=== PATIENT | female | born 1960 | race Caucasian/White ===

== ENCOUNTER 2016-11-05 19:27 | Emergency (ER) | payer OTHER ==
[~2016-11-05] VITALS: Ht 162.6 cm; Wt 70.3 kg
[~2016-11-05 19:27] MED LIST: FLUT1DIS28 INH
[2016-11-05] MEDS ORDERED: ALBU18HF2 IH (19:39)
[2016-11-05] MEDS ORDERED: ALBUTEROL SULFATE 2.5 MG/3 ML NEBU NEB ONE ×2 (19:45→20:15)
[2016-11-05] MEDS ORDERED: ALBUTEROL SULFATE 2.5 MG/3 ML NEBU ONE ×2 (20:03→20:28)
[2016-11-05] MEDS ORDERED: predniSONE 50 MG TABLET PO ONE (20:15)
[2016-11-05] MEDS ORDERED: predniSONE 50 MG TABLET ONE (20:24)
--- NOTE | 2016-11-05 21:48 | NUR ---
Patient does not wish to proceed with medical care recommended by Dr. Colmenares. Patient given information related to possible complications, up to and including , which could occur as a result of leaving the hospital at this time. Patient verbalizes understanding of risks involved due to leaving against medical advice. Patient has signed AMA form.
--- NOTE | 2016-11-10 21:17 | NUR ---
Correction. 11/05/16. V/S charted are post resp neb tx, NOT during neb tx at 2117 11/05/16.
== END 2016-11-05 21:49 | disposition left against medical advice (07) ==
LOC: ER 19:27
DX: J45.901 Unspecified asthma with (acute) exacerbation (principal); E03.9 Hypothyroidism, unspecified; Z88.0 Allergy status to penicillin; Z90.710 Acquired absence of both cervix and uterus
CPT/HCPCS: 94640 ×2; 99284; A4663; J7512

== ENCOUNTER 2016-11-23 14:59 | Emergency (ER) | payer OTHER ==
[~2016-11-23] VITALS: Ht 162.6 cm; Wt 70.3 kg
[~2016-11-23 14:59] MED LIST changes: +ALBU18HF2 IH
[2016-11-23] MEDS ORDERED: IPRATROPIUM BROMIDE 0.5 MG/2.5 ML NEBU NEB ONE ×2 (15:15→15:45)
[2016-11-23] MEDS ORDERED: predniSONE 10 MG TABLET PO ONE (15:15)
[2016-11-23] MEDS ORDERED: ALBUTEROL SULFATE 2.5 MG/3 ML NEBU NEB ONE ×2 (15:15→15:45)
--- NOTE | 2016-11-23 15:15 | NUR ---
BREATHING TREATMENT GIVEN BY RT.
[2016-11-23] MEDS ORDERED: predniSONE 10 MG TABLET ONE (15:21)
[2016-11-23] MEDS ORDERED: predniSONE 50 MG TABLET ONE (15:21)
[2016-11-23] MEDS ORDERED: ALBUTEROL SULFATE 2.5 MG/3 ML NEBU ONE ×2 (15:23→16:14)
[2016-11-23] MEDS ORDERED: IPRATROPIUM BROMIDE 0.5 MG/2.5 ML NEBU ONE ×2 (15:23→16:14)
--- NOTE | 2016-11-23 16:11 | NUR ---
2ND BREATHING TX RENDERED BY RT PER MD ORDER.
[2016-11-23 17:01] VITALS: BP 103/69
--- NOTE | 2016-11-23 17:04 | NUR ---
Patient discharged to home in stable conditon. Written and verbal after care instructions given. Patient verbalizes understanding of instructions.PT WALKS IN SRTEADY GAIT, SAYS FELS BETTER.
== END 2016-11-23 17:04 | disposition home or self-care (01) ==
LOC: ER 15:04
DX: J45.901 Unspecified asthma with (acute) exacerbation (principal); F10.20 Alcohol dependence, uncomplicated; E03.9 Hypothyroidism, unspecified; Z88.0 Allergy status to penicillin
CPT/HCPCS: 71010; A4663; J3590; J7512

== ENCOUNTER 2017-05-29 19:15 | Emergency (ER) | payer OTHER ==
[~2017-05-29] VITALS: Ht 162.6 cm; Wt 70.3 kg
--- NOTE | 2017-05-29 19:24 | NUR ---
DR. WASHBURN AT BEDSIDE FOR MSE.
--- NOTE | 2017-05-29 19:38 | NUR ---
RT AT BEDSIDE FOR HHN TREATMENT.
--- NOTE | 2017-05-29 20:15 | NUR ---
Patient discharged to home in stable conditon. Written and verbal after care instructions given. Patient verbalizes understanding of instructions. PATIENT LEFT WITH STABLE GAIT.
[2017-05-29 20:16] VITALS: BP 131/88
== END 2017-05-29 20:17 | disposition home or self-care (01) ==
LOC: ER 19:15
DX: J45.901 Unspecified asthma with (acute) exacerbation (principal); J20.9 Acute bronchitis, unspecified; Z88.0 Allergy status to penicillin
CPT/HCPCS: 71010; A4663; J3590; J7512

== ENCOUNTER 2017-07-23 18:43 | Emergency (ER) | payer OTHER ==
[~2017-07-23] VITALS: Ht 162.6 cm; Wt 70.3 kg
[2017-07-23] MEDS ORDERED: ALBUTEROL SULFATE 2.5 MG/3 ML NEBU NEB ONE (19:15)
[2017-07-23] MEDS ORDERED: predniSONE 20 MG TABLET PO ONE (19:15)
[2017-07-23] MEDS ORDERED: IPRATROPIUM BROMIDE 0.5 MG/2.5 ML NEBU NEB ONE (19:15)
[2017-07-23] MEDS ORDERED: predniSONE 50 MG TABLET ONE (19:30)
[2017-07-23] MEDS ORDERED: predniSONE 10 MG TABLET ONE (19:30)
[2017-07-23] MEDS ORDERED: IPRATROPIUM BROMIDE 0.5 MG/2.5 ML NEBU ONE (19:31)
[2017-07-23] MEDS ORDERED: ALBUTEROL SULFATE 2.5 MG/ 0.5 ML NEBU ONE (19:31)
--- NOTE | 2017-07-23 19:47 | NUR ---
Patient discharged to home in stable conditon. Written and verbal after care instructions given. Patient verbalizes understanding of instructions. Walked out of ER with no distress noted
[2017-07-23 19:49] VITALS: BP 130/77
== END 2017-07-23 19:49 | disposition home or self-care (01) ==
LOC: ER 18:43
DX: J45.901 Unspecified asthma with (acute) exacerbation (principal); E03.9 Hypothyroidism, unspecified; Z88.0 Allergy status to penicillin; Z90.49 Acquired absence of other specified parts of digestive tract
CPT/HCPCS: 94664; A4663; J3590; J7512

== ENCOUNTER 2018-05-27 19:33 | Emergency (ER) | payer OTHER ==
[~2018-05-27] VITALS: Ht 162.6 cm; Wt 68.0 kg
--- NOTE | 2018-05-27 20:09 | NUR ---
PT A/OX4, RESPONSIVE TO VERBAL AND TACTILE STIMULI. PT C/O GENERALIZED WEAKNESS AND INTERCOSTAL PAIN. PER PT, SHE HAD AN ASTHMA ATTACK ABOUT AN HOUR AGO THAT LASTED ABOUT 10 MIN AND WAS RELIEVED BY THE USE OF HER MDI. UPON ASSESSMENT, PT PRESENTS W/ RONCHI IN ALL LUNG SALAMANCA. VSS, SPO2 WNL. NO FACIAL DROOP, NO ARM DRIFT, NO UNILATERAL WEAKNESS. PT IN BED, BED IN LOW AND LOCKED POSITION WITH BILATERAL SIDERAILS UP.
--- NOTE | 2018-05-27 20:57 | NUR ---
JAQUELIN COLLINS AT BEDSIDE.
[2018-05-27] MEDS ORDERED: ALBUTEROL SULFATE 2.5 MG/3 ML NEBU NEB ONE (21:15)
[2018-05-27] MEDS ORDERED: IPRATROPIUM BROMIDE 0.5 MG/2.5 ML NEBU NEB ONE (21:15)
[2018-05-27] MEDS ORDERED: methylPREDNISolone SOD SUCC 125 MG/2 ML VIAL IV ONE (21:15)
[2018-05-27] MEDS ORDERED: IPRATROPIUM BROMIDE 0.5 MG/2.5 ML NEBU ONE (21:26)
[2018-05-27] MEDS ORDERED: ALBUTEROL SULFATE 2.5 MG/ 0.5 ML NEBU ONE (21:26)
[2018-05-27 21:36] LABS: BASOPHILS # (AUTO) 0.1 K/uL (0.0-8.0); BASOPHILS % (AUTO) 1.2 % (0.0-2.0); EOSINOPHILS # (AUTO) 0.6 K/uL (0.0-0.7); EOSINOPHILS % (AUTO) 7.9 % (0.0-7.0); HEMATOCRIT 42.9 % (31.2-41.9); HEMOGLOBIN 14.8 g/dL (10.9-14.3); LYMPHOCYTES # (AUTO) 2.6 K/uL (20.0-40.0); LYMPHOCYTES % (AUTO) 36.2 % (20.5-51.5); MEAN CORPUSCULAR HEMOGLOBIN 32.1 uug (24.7-32.8); MEAN CORPUSCULAR HGB CONC 34 g/dL (32.3-35.6); MEAN CORPUSCULAR VOLUME 93.2 fL (75.5-95.3); MONOCYTES # (AUTO) 0.6 K/uL (2.0-10.0); MONOCYTES % (AUTO) 8.4 % (0.0-11.0); NEUTROPHILS # (AUTO) 3.3 K/uL (1.8-8.9); NEUTROPHILS % (AUTO) 46.3 % (38.5-71.5); PLATELET COUNT (AUTO) 199 K/uL (179-408); WHITE BLOOD COUNT (AUTO) 7.1 K/uL (3.8-11.8)
--- NOTE | 2018-05-27 21:36 | NUR ---
XRAY AT BEDSIDE.
[2018-05-27 21:45] LABS: CREATININE 0.7 mg/dL (0.6-1.3); POTASSIUM 4.1 mmol/L (3.5-5.1)
[2018-05-27 21:52] LABS: BILIRUBIN,DIRECT 0.1 mg/dL (0.0-0.2); BILIRUBIN,TOTAL 0.2 mg/dL (0.2-1.0); TOTAL PROTEIN, SERUM 7.7 g/dL (6.4-8.2)
--- NOTE | 2018-05-27 22:49 | NUR ---
JAQUELIN COLLINS AT BEDSIDE FOR PT UPDATE.
--- NOTE | 2018-05-27 23:03 | NUR ---
Patient discharged to home in stable conditon. Written and verbal after care instructions given. Patient verbalizes understanding of instructions. PT D/C HOME W/ PRESCRIPTION. ALL BELONGINGS W/ PT. PT SELF-AMBULATED WITHOUT DIFFICULTY. 20 G L AC IV ACCESS REMOVED PRIOR TO D/C.
[2018-05-27 23:05] VITALS: BP 136/82
== END 2018-05-27 23:05 | disposition home or self-care (01) ==
LOC: ER 19:35
DX: R07.89 Other chest pain (principal); J45.909 Unspecified asthma, uncomplicated; E03.9 Hypothyroidism, unspecified; Z90.710 Acquired absence of both cervix and uterus; Z90.49 Acquired absence of other specified parts of digestive tract; Z88.0 Allergy status to penicillin
CPT/HCPCS: 36415; 71045; 80048; 80076; 84484; 85025; 93005; 94640; 96374; 99285; A4663; J3590; 70030-TC

== ENCOUNTER 2018-06-27 18:04 | Emergency (ER) | payer OTHER ==
[~2018-06-27] VITALS: Ht 162.6 cm; Wt 65.8 kg
--- NOTE | 2018-06-27 18:53 | NUR ---
Patient discharged to home in stable conditon. Written and verbal after care instructions given. Patient verbalizes understanding of instructions.pt walks in steady gait. pt breathing normally, no sign of distress.
== END 2018-06-27 18:55 | disposition home or self-care (01) ==
LOC: ER 18:06
DX: J45.909 Unspecified asthma, uncomplicated (principal); E03.9 Hypothyroidism, unspecified; Z90.710 Acquired absence of both cervix and uterus; Z90.49 Acquired absence of other specified parts of digestive tract; Z88.0 Allergy status to penicillin
CPT/HCPCS: A4663

== ENCOUNTER 2018-08-05 06:07 | Emergency (ER) | payer OTHER ==
[~2018-08-05] VITALS: Ht 167.6 cm; Wt 65.8 kg
[~2018-08-05 06:07] MED LIST changes: -ALBU18HF2 IH
--- NOTE | 2018-08-05 06:43 | NUR ---
DR. AVENDANO AT BEDSIDE FOR MSE.
[2018-08-05] MEDS ORDERED: IPRATROPIUM BROMIDE 0.5 MG/2.5 ML NEBU NEB ONE (07:00)
[2018-08-05] MEDS ORDERED: ALBUTEROL SULFATE 2.5 MG/3 ML NEBU NEB ONE (07:00)
[2018-08-05] MEDS ORDERED: IV NORMAL SALINE 500 ML BAG IV ONE (07:00)
[2018-08-05 07:08] LABS: BASOPHILS % (AUTO) 0.5 % (0.0-2.0); EOSINOPHILS # (AUTO) 0.2 K/uL (0.0-0.7); EOSINOPHILS % (AUTO) 2.1 % (0.0-7.0); HEMATOCRIT 40.3 % (31.2-41.9); HEMOGLOBIN 14.1 g/dL (10.9-14.3); LYMPHOCYTES # (AUTO) 0.7 K/uL (20.0-40.0); LYMPHOCYTES % (AUTO) 7.7 % (20.5-51.5); MEAN CORPUSCULAR HEMOGLOBIN 31.6 uug (24.7-32.8); MEAN CORPUSCULAR HGB CONC 35 g/dL (32.3-35.6); MONOCYTES # (AUTO) 0.4 K/uL (2.0-10.0); MONOCYTES % (AUTO) 4.7 % (0.0-11.0); NEUTROPHILS # (AUTO) 7.4 K/uL (1.8-8.9); PLATELET COUNT (AUTO) 188 K/uL (179-408); RED BLOOD CELL COUNT(AUTO) 4.48 MIL/uL (3.63-4.92); WHITE BLOOD COUNT (AUTO) 8.7 K/uL (3.8-11.8)
--- NOTE | 2018-08-05 07:08 | NUR ---
REPORT GIVEN TO FLOYD PAN.
--- NOTE | 2018-08-05 07:15 | NUR ---
RSV swab done and sent to LAB.
[2018-08-05 07:18] LABS: CREATININE 0.7 mg/dL (0.6-1.3); POTASSIUM 3.6 mmol/L (3.5-5.1)
--- NOTE | 2018-08-05 07:18 | NUR ---
Pt states feeling better after breathing tx.
[2018-08-05] MEDS ORDERED: LEVOFLOXACIN 750 MG/D5W 150 ML PIGGYBACK IV ONE (07:30)
[2018-08-05 07:31] LABS: BILIRUBIN,DIRECT 0.1 mg/dL (0.0-0.2); BILIRUBIN,TOTAL 0.4 mg/dL (0.2-1.0)
[2018-08-05] MEDS ORDERED: LEVOFLOXACIN 750MG/D5W 150 ML IV ONE (07:35)
--- NOTE | 2018-08-05 08:43 | NUR ---
Patient is resting comfortably in bed with eyes closed, NAD noted.
[2018-08-05 08:54] VITALS: BP 127/70
--- NOTE | 2018-08-05 08:57 | NUR ---
IV removed. Catheter intact and site benign. Pressure and 4x4 gauze applied to site. No bleeding noted.
--- NOTE | 2018-08-05 08:57 | NUR ---
Patient discharged to home in stable conditon. Written and verbal after care instructions given. Patient verbalizes understanding of instructions.
== END 2018-08-05 08:57 | disposition home or self-care (01) ==
LOC: ER 06:27
DX: J06.9 Acute upper respiratory infection, unspecified (principal); H66.91 Otitis media, unspecified, right ear; J45.909 Unspecified asthma, uncomplicated; E03.9 Hypothyroidism, unspecified; Z88.0 Allergy status to penicillin; Z79.51 Long term (current) use of inhaled steroids; Z90.710 Acquired absence of both cervix and uterus; Z90.49 Acquired absence of other specified parts of digestive tract
CPT/HCPCS: 36415; 71045; 80048; 80076; 83880; 84484; 85025; 87040 ×2; 87077 ×2; 87186; 87400; 87420; 93005; 94640; 96365; 99284; J1956; 70030-TC; A4663; J3590; J7030

== ENCOUNTER 2018-08-08 13:46 | Emergency (ER) | payer OTHER ==
[~2018-08-08] VITALS: Ht 167.6 cm; Wt 66.2 kg
[2018-08-08 14:51] VITALS: BP 118/70
== END 2018-08-08 14:52 | disposition home or self-care (01) ==
LOC: ER 13:46
DX: H65.91 Unspecified nonsuppurative otitis media, right ear (principal); J45.909 Unspecified asthma, uncomplicated; E03.9 Hypothyroidism, unspecified; Z90.49 Acquired absence of other specified parts of digestive tract; Z88.0 Allergy status to penicillin; Z79.51 Long term (current) use of inhaled steroids
CPT/HCPCS: A4663

== ENCOUNTER → 2018-08-08 | Emergency (ER) | payer OTHER ==
[~2018-08-08] VITALS: Ht 167.6 cm; Wt 66.2 kg
--- NOTE | 2018-08-08 13:11 | NUR ---
PT PREVIOUSLY CALLED IN - NOT IN WAITING ROOM X 2.
== END | disposition left against medical advice (07) ==
LOC: ER 12:33
DX: Z53.21 Procedure and treatment not carried out due to patient leaving prior to being seen by health care provider (principal)

== ENCOUNTER 2018-08-11 19:31 | Emergency (ER) | END 2018-08-11 20:23 | disposition home or self-care (01) | DX: H66.91 Otitis media, unspecified, right ear (principal); J45.909 Unspecified asthma, uncomplicated; E03.9 Hypothyroidism, unspecified; Z90.710 Acquired absence of both cervix and uterus; Z98.890 Other specified postprocedural states; Z88.0 Allergy status to penicillin ==

== ENCOUNTER 2018-10-24 08:45 | Emergency (ER) | payer OTHER ==
[~2018-10-24] VITALS: Ht 162.6 cm; Wt 65.8 kg
[2018-10-24] MEDS ORDERED: predniSONE 20 MG TABLET PO ONE (09:15)
[2018-10-24] MEDS ORDERED: CEphaleXIN 500 MG CAPSULE PO ONE (09:15)
[2018-10-24] MEDS ORDERED: CEphaleXIN 500 MG CAPSULE ONE (09:21)
[2018-10-24] MEDS ORDERED: predniSONE 10 MG TABLET ONE (09:22)
[2018-10-24] MEDS ORDERED: predniSONE 50 MG TABLET ONE (09:22)
--- NOTE | 2018-10-24 09:23 | NUR ---
Patient discharged to home in stable conditon. Written and verbal after care instructions given. Patient verbalizes understanding of instructions.pt walks in steady gait. pt breathing normally.
== END 2018-10-24 09:27 | disposition home or self-care (01) ==
LOC: ER 08:45
DX: J45.909 Unspecified asthma, uncomplicated (principal); I88.9 Nonspecific lymphadenitis, unspecified; E03.9 Hypothyroidism, unspecified; Z90.49 Acquired absence of other specified parts of digestive tract; Z90.710 Acquired absence of both cervix and uterus; Z88.0 Allergy status to penicillin; Z79.51 Long term (current) use of inhaled steroids
CPT/HCPCS: 99283; J7512 ×2; A4663

== ENCOUNTER 2018-12-16 18:06 | Emergency (ER) | payer OTHER ==
[~2018-12-16] VITALS: Ht 162.6 cm; Wt 65.8 kg
[2018-12-16] MEDS ORDERED: ALBU18HF2 IH (18:12)
[2018-12-16] MEDS ORDERED: predniSONE 10 MG TABLET PO ONE (18:45)
[2018-12-16] MEDS ORDERED: ALBUTEROL SULFATE 2.5 MG/3 ML NEBU NEB ONE ×2 (18:45→19:45)
[2018-12-16] MEDS ORDERED: IPRATROPIUM BROMIDE 0.5 MG/2.5 ML NEBU NEB ONE ×2 (18:45→19:45)
[2018-12-16] MEDS ORDERED: ALBUTEROL SULFATE 2.5 MG/3 ML NEBU ONE ×2 (18:51→19:29)
[2018-12-16] MEDS ORDERED: IPRATROPIUM BROMIDE 0.5 MG/2.5 ML NEBU ONE ×2 (18:52→19:29)
[2018-12-16] MEDS ORDERED: ALBUTEROL SULFATE 2.5 MG/ 0.5 ML NEBU ONE (18:52)
[2018-12-16] MEDS ORDERED: predniSONE 10 MG TABLET ONE (18:53)
[2018-12-16] MEDS ORDERED: predniSONE 50 MG TABLET ONE (18:53)
--- NOTE | 2018-12-16 20:24 | NUR ---
Patient discharged to home in stable conditon. Written and verbal after care instructions given. Patient verbalizes understanding of instructions. Pt ambulated out of ER with steady gait, no acute signs of distress, VSS, all belongings taken.
[2018-12-16 20:28] VITALS: BP 116/79
== END 2018-12-16 20:29 | disposition home or self-care (01) ==
LOC: ER 18:06
DX: J45.901 Unspecified asthma with (acute) exacerbation (principal); E03.9 Hypothyroidism, unspecified; Z88.0 Allergy status to penicillin; Z90.710 Acquired absence of both cervix and uterus; Z90.49 Acquired absence of other specified parts of digestive tract; Z79.899 Other long term (current) drug therapy
CPT/HCPCS: 71045; 94640; 94644; 99285; J7512 ×2; A4663; J3590

== ENCOUNTER 2019-01-15 16:32 | Emergency (ER) | payer OTHER ==
[~2019-01-15] VITALS: Ht 162.6 cm; Wt 65.8 kg
[~2019-01-15 16:32] MED LIST changes: +ALBU18HF2 IH; -FLUT1DIS28 INH
[2019-01-15] MEDS ORDERED: ONDANSETRON 4 MG/2 ML VIAL IM ONE (17:15)
[2019-01-15] MEDS ORDERED: HYDROMORPHONE 1 MG/1 ML DISP.SYRIN IM ONE (17:15)
[2019-01-15] MEDS ORDERED: HYDROMORPHONE 1 MG/1 ML DISP.SYRIN ONE (17:20)
[2019-01-15] MEDS ORDERED: ONDANSETRON 4 MG/2 ML VIAL ONE (17:20)
--- NOTE | 2019-01-15 17:58 | NUR ---
Patient is resting comfortably on gurney while using her personal electronic device & waiting for CT scan results. PATIENT IS PAIN FREE AT THIS TIME.
--- NOTE | 2019-01-15 18:01 | NUR ---
Patient ambulated to the bathroom with slow steady gait.
--- NOTE | 2019-01-15 18:06 | NUR ---
Patient is AOx4, denies any discomfort. Patient discharged to home in stable conditon with slow steady gait. Written and verbal after care instructions given to patient. Patient verbalizes understanding and compliance of instructions. Patient says that her daughter is coming to pick her up & give her a ride home.
== END 2019-01-15 18:21 | disposition home or self-care (01) ==
LOC: ER 16:34
DX: S00.12XA Contusion of left eyelid and periocular area, initial encounter (principal); R51 Headache; R42 Dizziness and giddiness; J45.909 Unspecified asthma, uncomplicated; E03.9 Hypothyroidism, unspecified; Z90.710 Acquired absence of both cervix and uterus; Z90.49 Acquired absence of other specified parts of digestive tract; Z79.899 Other long term (current) drug therapy; X58.XXXA Exposure to other specified factors, initial encounter; Y93.89 Activity, other specified; Y92.89 Other specified places as the place of occurrence of the external cause; Y99.8 Other external cause status
CPT/HCPCS: 70450; 96372 ×2; 99284; J1170; J2405; A4663

== ENCOUNTER 2019-02-27 17:45 | Emergency (ER) | payer OTHER ==
[~2019-02-27] VITALS: Ht 162.6 cm; Wt 65.8 kg
--- NOTE | 2019-02-27 18:39 | NUR ---
Dr Iyer at the bedside for MSE.
[2019-02-27] MEDS ORDERED: FAMOTIDINE. 20 MG/2 ML VIAL IV ONE ×2 (18:45→18:49)
[2019-02-27] MEDS ORDERED: IV NORMAL SALINE 1000 ML BAG IV ONE (18:45)
[2019-02-27] MEDS ORDERED: KETOROLAC TROMETHAMINE 15 MG INJ IV ONE (18:45)
[2019-02-27] MEDS ORDERED: ONDANSETRON 4 MG/2 ML VIAL IV ONE (18:45)
[2019-02-27] MEDS ORDERED: ONDANSETRON 4 MG/2 ML VIAL ONE (18:48)
[2019-02-27] MEDS ORDERED: KETOROLAC TROMETHAMINE 15 MG INJ ONE (18:48)
[2019-02-27 18:49] LABS: BASOPHILS % (AUTO) 0.2 % (0.0-2.0); EOSINOPHILS # (AUTO) 0.1 K/uL (0.0-0.7); EOSINOPHILS % (AUTO) 1.9 % (0.0-7.0); HEMATOCRIT 41.4 % (31.2-41.9); HEMOGLOBIN 13.5 g/dL (10.9-14.3); LYMPHOCYTES # (AUTO) 0.6 K/uL (20.0-40.0); LYMPHOCYTES % (AUTO) 9.3 % (20.5-51.5); MEAN CORPUSCULAR HEMOGLOBIN 29.5 uug (24.7-32.8); MEAN CORPUSCULAR HGB CONC 33 g/dL (32.3-35.6); MEAN CORPUSCULAR VOLUME 90.3 fL (75.5-95.3); MONOCYTES # (AUTO) 0.3 K/uL (2.0-10.0); MONOCYTES % (AUTO) 4.8 % (0.0-11.0); NEUTROPHILS # (AUTO) 5.8 K/uL (1.8-8.9); NEUTROPHILS % (AUTO) 83.8 % (38.5-71.5); PLATELET COUNT (AUTO) 166 K/uL (179-408); RED BLOOD CELL COUNT(AUTO) 4.58 MIL/uL (3.63-4.92); WHITE BLOOD COUNT (AUTO) 6.9 K/uL (3.8-11.8)
[2019-02-27 18:53] LABS: CARBON DIOXIDE 27 mmol/L (21-32); CHLORIDE 102 mmol/L (98-107); CREATININE 0.8 mg/dL (0.6-1.3); GLUCOSE 117 mg/dL (74-106); UREA NITROGEN, BLOOD 12 mg/dL (7-18)
[2019-02-27 18:56] LABS: *BILIRUBIN,URIN NEGATIVE (NEGATIVE); *COLOR,URINE YELLOW (YELLOW); *KETONES,URINE NEGATIVE (NEGATIVE); *UROBILINOGEN,URINE 0.2 E.U./dl (NORMAL); LEUKOCYTE ESTERASE ,URINE TRACE (NEGATIVE); NITRITE, URINE NEGATIVE (NEGATIVE); PH,URINE 5.5 (5.0-8.0); UGLUCOSE NEGATIVE (NEGATIVE)
[2019-02-27 18:58] LABS: ALANINE AMINOTRANSFERASE 22 U/L (14-59); ALKALINE PHOSPHATASE 61 U/L (50-136); ASPARTATE AMINOTRANSFERASE 15 U/L (15-37); BILIRUBIN,DIRECT < 0.1 mg/dL (0.0-0.2); BILIRUBIN,TOTAL 0.4 mg/dL (0.2-1.0); LIPASE 101 U/L (73-393); TOTAL PROTEIN, SERUM 7.3 g/dL (6.4-8.2)
[2019-02-27 19:03] LABS: *BLOOD, URINE TRACE (NEGATIVE); *CLARITY,URINE SLIGHTLY HAZY (CLEAR)
[2019-02-27 19:04] LABS: SQUAMOUS EPITHELIAL CELL,UR MODERATE /HPF (NONE SEEN)
[2019-02-27 19:05] LABS: MUCUS,URINE MANY /LPF (0-FEW)
--- NOTE | 2019-02-27 19:05 | NUR ---
Patient transported to CT in stable condition
--- NOTE | 2019-02-27 19:28 | NUR ---
Patient back in room from CT
[2019-02-27] MEDS ORDERED: POTASSIUM CHLORIDE 20 MEQ TAB.PRT.SR PO ONE (20:15)
[2019-02-27] MEDS ORDERED: POTASSIUM CHLORIDE 20 MEQ TAB.PRT.SR ONE (20:18)
[2019-02-27 20:31] VITALS: BP 112/79
== END 2019-02-27 20:32 | disposition home or self-care (01) ==
LOC: ER 17:46
DX: R10.13 Epigastric pain (principal); R10.33 Periumbilical pain; R11.2 Nausea with vomiting, unspecified; E87.6 Hypokalemia; J45.909 Unspecified asthma, uncomplicated; E03.9 Hypothyroidism, unspecified; Z90.710 Acquired absence of both cervix and uterus; Z90.49 Acquired absence of other specified parts of digestive tract; Z88.0 Allergy status to penicillin; Z79.899 Other long term (current) drug therapy
CPT/HCPCS: 36415; 74176; 80048; 80076; 81000; 81001; 83690; 85025; 96361; 96374; 96375; 99284; J1885; J2405; J3490; A4663; J7030

== ENCOUNTER 2019-03-26 01:46 | Emergency (ER) | payer OTHER ==
[~2019-03-26] VITALS: Ht 162.6 cm; Wt 70.3 kg
--- NOTE | 2019-03-26 02:11 | NUR ---
RT CAICEDO AT BEDSIDE.
[2019-03-26] MEDS ORDERED: ALBUTEROL SULFATE 2.5 MG/3 ML NEBU ONE ×2 (02:12→02:38)
[2019-03-26] MEDS ORDERED: ALBUTEROL SULFATE 2.5 MG/3 ML NEBU NEB ONE ×2 (02:15→02:30)
[2019-03-26] MEDS ORDERED: predniSONE 50 MG TABLET PO ONE (02:30)
[2019-03-26] MEDS ORDERED: predniSONE 50 MG TABLET ONE (02:47)
--- NOTE | 2019-03-26 03:20 | NUR ---
PATIENT TOLERATED SHORT WALK IN ER NO C/O ANY CP. NO SOB.
--- NOTE | 2019-03-26 04:06 | NUR ---
Patient discharged to home in stable conditon. Written and verbal after care instructions given. Patient verbalizes understanding of instructions.
[2019-03-26 04:10] VITALS: BP 121/71
== END 2019-03-26 04:12 | disposition home or self-care (01) ==
LOC: ER 01:49
DX: J45.901 Unspecified asthma with (acute) exacerbation (principal); E03.9 Hypothyroidism, unspecified; Z90.49 Acquired absence of other specified parts of digestive tract; Z90.710 Acquired absence of both cervix and uterus; Z79.899 Other long term (current) drug therapy
CPT/HCPCS: 94640; 94644; 99285; J7512; A4663

== ENCOUNTER 2019-05-18 20:20 | Emergency (ER) | payer OTHER ==
[~2019-05-18] VITALS: Ht 162.6 cm; Wt 70.3 kg
--- NOTE | 2019-05-18 20:42 | NUR ---
MD AT BEDSIDE FOR HX AND PHYSICAL RR AT 20 +COUGHING FOR THE PAST 2WKS SPO2 AT 92% +WHEEZING ON LEFT LUNG FIELD RT TECH CALLED IN [facility] BREATHING TX
[2019-05-18] MEDS ORDERED: IPRATROPIUM BROMIDE 0.5 MG/2.5 ML NEBU NEB ONE (20:45)
[2019-05-18] MEDS ORDERED: predniSONE 10 MG TABLET PO ONE (20:45)
[2019-05-18] MEDS ORDERED: ALBUTEROL SULFATE 2.5 MG/3 ML NEBU NEB ONE (20:45)
[2019-05-18] MEDS ORDERED: predniSONE 10 MG TABLET ONE (20:51)
[2019-05-18] MEDS ORDERED: predniSONE 50 MG TABLET ONE (20:51)
[2019-05-18] MEDS ORDERED: IPRATROPIUM BROMIDE 0.5 MG/2.5 ML NEBU ONE (20:54)
[2019-05-18] MEDS ORDERED: ALBUTEROL SULFATE 2.5 MG/3 ML NEBU ONE (20:54)
--- NOTE | 2019-05-18 22:15 | NUR ---
PT ASLEEP NAD MONITORED ACCORDINGLY DECREASED WHEEZING ON BOTH LUNG SALAMANCA SPO2 AT 95% HR AT 89
--- NOTE | 2019-05-18 22:38 | NUR ---
Patient discharged to home in stable conditon. Written and verbal after care instructions given. Patient verbalizes understanding of instructions. AMBULATORY W/ STABLE GAIT ALL BELONGINGS W/ PT
[2019-05-18 22:39] VITALS: BP 116/93
== END 2019-05-18 22:40 | disposition home or self-care (01) ==
LOC: ER 20:26
DX: J45.901 Unspecified asthma with (acute) exacerbation (principal); E03.9 Hypothyroidism, unspecified; Z90.49 Acquired absence of other specified parts of digestive tract; Z90.710 Acquired absence of both cervix and uterus; Z88.0 Allergy status to penicillin; Z79.899 Other long term (current) drug therapy
CPT/HCPCS: 71045; 94640; 99283; J7512 ×2; A4663; J3590

== ENCOUNTER 2019-05-29 05:33 | Emergency (ER) | payer OTHER ==
[~2019-05-29] VITALS: Ht 162.6 cm; Wt 70.3 kg
[2019-05-29] MEDS ORDERED: ALBUTEROL SULFATE 2.5 MG/3 ML NEBU NEB ONE ×3 (06:00→07:15)
[2019-05-29] MEDS ORDERED: IPRATROPIUM BROMIDE 0.5 MG/2.5 ML NEBU NEB ONE ×2 (06:00→07:15)
[2019-05-29] MEDS ORDERED: ASPIRIN 81 MG TAB.CHEW PO ONE (06:00)
[2019-05-29] MEDS ORDERED: ALBUTEROL SULFATE 2.5 MG/ 0.5 ML NEBU ONE (06:01)
[2019-05-29] MEDS ORDERED: IPRATROPIUM BROMIDE 0.5 MG/2.5 ML NEBU ONE ×2 (06:01→07:26)
[2019-05-29] MEDS ORDERED: ALBUTEROL SULFATE 2.5 MG/3 ML NEBU ONE ×3 (06:04→07:26)
--- NOTE | 2019-05-29 06:10 | NUR ---
RT AT BEDSIDE FOR BREATHING TX
[2019-05-29] MEDS ORDERED: ASPIRIN 81 MG TAB.CHEW ONE (06:15)
--- NOTE | 2019-05-29 06:20 | NUR ---
COPYWRITING INTERN AT BEDSIDE
[2019-05-29] MEDS ORDERED: methylPREDNISolone SOD SUCC 125 MG/2 ML VIAL ONE (06:37)
[2019-05-29] MEDS ORDERED: methylPREDNISolone SOD SUCC 125 MG/2 ML VIAL IV ONE (06:45)
[2019-05-29 06:56] LABS: BASOPHILS # (AUTO) 0.1 K/uL (0.0-8.0); BASOPHILS % (AUTO) 0.9 % (0.0-2.0); EOSINOPHILS # (AUTO) 0.6 K/uL (0.0-0.7); EOSINOPHILS % (AUTO) 7.3 % (0.0-7.0); HEMATOCRIT 42.7 % (31.2-41.9); HEMOGLOBIN 14.2 g/dL (10.9-14.3); LYMPHOCYTES # (AUTO) 3.4 K/uL (20.0-40.0); LYMPHOCYTES % (AUTO) 41.6 % (20.5-51.5); MEAN CORPUSCULAR HEMOGLOBIN 30.7 uug (24.7-32.8); MEAN CORPUSCULAR HGB CONC 33 g/dL (32.3-35.6); MEAN CORPUSCULAR VOLUME 92.5 fL (75.5-95.3); MONOCYTES # (AUTO) 0.7 K/uL (2.0-10.0); NEUTROPHILS # (AUTO) 3.5 K/uL (1.8-8.9); NEUTROPHILS % (AUTO) 42.2 % (38.5-71.5); PLATELET COUNT (AUTO) 195 K/uL (179-408); RED BLOOD CELL COUNT(AUTO) 4.62 MIL/uL (3.63-4.92); WHITE BLOOD COUNT (AUTO) 8.3 K/uL (3.8-11.8)
[2019-05-29 07:00] LABS: CREATININE 0.8 mg/dL (0.6-1.3)
--- NOTE | 2019-05-29 07:09 | NUR ---
report to FLOYD Hdez. Patient states she feels better.
[2019-05-29 07:13] LABS: BILIRUBIN,DIRECT 0.1 mg/dL (0.0-0.2); BILIRUBIN,TOTAL 0.2 mg/dL (0.2-1.0); TOTAL PROTEIN, SERUM 7.4 g/dL (6.4-8.2)
--- NOTE | 2019-05-29 07:14 | NUR ---
Report received from FLOYD Medina.Pt remains awake,alert.Denies SOB.
--- NOTE | 2019-05-29 07:29 | NUR ---
RT at bedside for breathing TX.
[2019-05-29 08:12] VITALS: BP 108/57
== END 2019-05-29 08:13 | disposition home or self-care (01) ==
LOC: ER 05:35
DX: J45.909 Unspecified asthma, uncomplicated (principal); E03.9 Hypothyroidism, unspecified; Z90.49 Acquired absence of other specified parts of digestive tract; Z90.710 Acquired absence of both cervix and uterus; Z88.0 Allergy status to penicillin; Z79.899 Other long term (current) drug therapy
CPT/HCPCS: 36415; 71045; 80048; 80076; 83880; 84484; 85025; 85379; 93005; 94640 ×2; 99284; J2930; 70030-TC; A4663; J3590

== ENCOUNTER 2019-06-24 16:16 | Emergency (ER) | payer OTHER ==
[~2019-06-24] VITALS: Ht 162.6 cm; Wt 70.3 kg
--- NOTE | 2019-06-24 16:57 | NUR ---
PT IS IN ROOM #2A. DR ROSE EVALUATED THE PT.
--- NOTE | 2019-06-24 17:35 | NUR ---
Patient discharged to home in stable conditon. Written and verbal after care instructions given. Patient verbalizes understanding of instructions.
== END 2019-06-24 17:50 | disposition home or self-care (01) ==
LOC: ER 16:18
DX: J02.0 Streptococcal pharyngitis (principal); R11.10 Vomiting, unspecified; J45.909 Unspecified asthma, uncomplicated; E03.9 Hypothyroidism, unspecified; Z90.49 Acquired absence of other specified parts of digestive tract; Z90.89 Acquired absence of other organs; Z88.0 Allergy status to penicillin; Z79.899 Other long term (current) drug therapy
CPT/HCPCS: 36415; 86403; A4663

== ENCOUNTER 2019-08-05 22:11 | Emergency (ER) | payer OTHER ==
[~2019-08-05] VITALS: Ht 162.6 cm; Wt 71.7 kg
--- NOTE | 2019-08-05 22:30 | NUR ---
Patient walked into ER c/o SOB due to asthma x1 day and coughing up yellow phelm.
[2019-08-05] MEDS ORDERED: IPRATROPIUM BROMIDE 0.5 MG/2.5 ML NEBU NEB ONE ×3 (23:00→23:15)
[2019-08-05] MEDS ORDERED: ALBUTEROL SULFATE 2.5 MG/3 ML NEBU NEB ONE ×3 (23:00→23:15)
[2019-08-05] MEDS ORDERED: IPRATROPIUM BROMIDE 0.5 MG/2.5 ML NEBU ONE (23:08)
[2019-08-05] MEDS ORDERED: ALBUTEROL SULFATE 2.5 MG/ 0.5 ML NEBU ONE (23:08)
[2019-08-05] MEDS ORDERED: methylPREDNISolone SOD SUCC 125 MG/2 ML VIAL ONE (23:12)
[2019-08-05 23:15] LABS: BASOPHILS # (AUTO) 0.1 K/uL (0.0-8.0); BASOPHILS % (AUTO) 1.3 % (0.0-2.0); EOSINOPHILS # (AUTO) 0.6 K/uL (0.0-0.7); EOSINOPHILS % (AUTO) 7.8 % (0.0-7.0); HEMATOCRIT 40.7 % (31.2-41.9); HEMOGLOBIN 13.7 g/dL (10.9-14.3); LYMPHOCYTES % (AUTO) 40.6 % (20.5-51.5); MEAN CORPUSCULAR HEMOGLOBIN 30.3 uug (24.7-32.8); MEAN CORPUSCULAR HGB CONC 34 g/dL (32.3-35.6); MEAN CORPUSCULAR VOLUME 90.1 fL (75.5-95.3); MONOCYTES # (AUTO) 0.6 K/uL (2.0-10.0); MONOCYTES % (AUTO) 8.3 % (0.0-11.0); NEUTROPHILS # (AUTO) 3.1 K/uL (1.8-8.9); PLATELET COUNT (AUTO) 171 K/uL (179-408); RED BLOOD CELL COUNT(AUTO) 4.51 MIL/uL (3.63-4.92); WHITE BLOOD COUNT (AUTO) 7.5 K/uL (3.8-11.8)
[2019-08-05] MEDS ORDERED: methylPREDNISolone SOD SUCC 125 MG/2 ML VIAL IV ONE (23:15)
[2019-08-05 23:24] LABS: CREATININE 0.7 mg/dL (0.6-1.3); POTASSIUM 3.4 mmol/L (3.5-5.1)
--- NOTE | 2019-08-06 01:00 | NUR ---
Patient anbulated around unit without SOB noted. Patient stating "I feel fine to go home."
--- NOTE | 2019-08-06 01:03 | NUR ---
IV removed. Catheter intact and site benign. Pressure and 4x4 gauze applied to site. No bleeding noted.
[2019-08-06 01:05] VITALS: BP 135/74
--- NOTE | 2019-08-06 01:07 | NUR ---
Patient does not wish to proceed with medical care recommended by ( Lauryn ). Patient given information related to possible complications, up to and including , which could occur as a result of leaving the hospital at this time. Patient verbalizes understanding of risks involved due to leaving against medical advice. Patient has signed AMA form.
== END 2019-08-06 01:07 | disposition left against medical advice (07) ==
LOC: ER 22:11
DX: J45.901 Unspecified asthma with (acute) exacerbation (principal); E03.9 Hypothyroidism, unspecified; Z90.710 Acquired absence of both cervix and uterus; Z90.49 Acquired absence of other specified parts of digestive tract; Z88.0 Allergy status to penicillin; Z79.899 Other long term (current) drug therapy
CPT/HCPCS: 36415; 71045; 80048; 84484; 85025; 87400; 93005; 94644; 96374; 99285; J2930; 70030-TC; A4663; J3590

== ENCOUNTER 2019-08-27 00:32 | Inpatient (IN) | payer OTHER ==
[~2019-08-27] VITALS: Ht 162.6 cm; Wt 70.3 kg
--- NOTE | 2019-08-27 00:51 | NUR ---
Dr. Combs at bedside for MSE.
[2019-08-27] MEDS ORDERED: IPRATROPIUM BROMIDE 0.5 MG/2.5 ML NEBU ONE ×2 (00:56→01:14)
[2019-08-27] MEDS ORDERED: ALBUTEROL SULFATE 2.5 MG/3 ML NEBU ONE ×3 (00:56→03:03)
[2019-08-27] MEDS ORDERED: IPRATROPIUM BROMIDE 0.5 MG/2.5 ML NEBU NEB ONE ×2 (01:00→01:15)
[2019-08-27] MEDS ORDERED: ALBUTEROL SULFATE 2.5 MG/3 ML NEBU NEB ONE ×3 (01:00→02:45)
--- NOTE | 2019-08-27 01:09 | NUR ---
Xray at bedside.
--- NOTE | 2019-08-27 01:10 | NUR ---
Respiratory at bedside.
[2019-08-27] MEDS ORDERED: methylPREDNISolone SOD SUCC 125 MG/2 ML VIAL IV ONE (01:15)
[2019-08-27] MEDS ORDERED: MAGNESIUM SULFATE/D5W 200 ML ONE (01:18)
[2019-08-27] MEDS ORDERED: methylPREDNISolone SOD SUCC 125 MG/2 ML VIAL ONE (01:19)
[2019-08-27] MEDS: MAGNESIUM SULFATE/D5W 100 ML IV SCH ×2 (01:23→01:54)
[2019-08-27 01:25] LABS: BASOPHILS % (AUTO) 0.4 % (0.0-2.0); EOSINOPHILS # (AUTO) 0.5 K/uL (0.0-0.7); EOSINOPHILS % (AUTO) 6.9 % (0.0-7.0); HEMATOCRIT 41.3 % (31.2-41.9); HEMOGLOBIN 13.8 g/dL (10.9-14.3); LYMPHOCYTES # (AUTO) 1.2 K/uL (20.0-40.0); LYMPHOCYTES % (AUTO) 16.6 % (20.5-51.5); MEAN CORPUSCULAR HEMOGLOBIN 30.2 uug (24.7-32.8); MEAN CORPUSCULAR HGB CONC 33 g/dL (32.3-35.6); MEAN CORPUSCULAR VOLUME 90.6 fL (75.5-95.3); MONOCYTES # (AUTO) 0.5 K/uL (2.0-10.0); MONOCYTES % (AUTO) 7.6 % (0.0-11.0); NEUTROPHILS # (AUTO) 4.9 K/uL (1.8-8.9); NEUTROPHILS % (AUTO) 68.5 % (38.5-71.5); PLATELET COUNT (AUTO) 126 K/uL (179-408); RED BLOOD CELL COUNT(AUTO) 4.56 MIL/uL (3.63-4.92); WHITE BLOOD COUNT (AUTO) 7.2 K/uL (3.8-11.8)
[2019-08-27 01:51] LABS: BILIRUBIN,TOTAL 0.4 mg/dL (0.2-1.0); CREATININE 0.7 mg/dL (0.6-1.3); POTASSIUM 3.5 mmol/L (3.5-5.1); TOTAL PROTEIN, SERUM 7.1 g/dL (6.4-8.2)
--- NOTE | 2019-08-27 02:36 | NUR ---
Pt states feeling much better, made aware.
--- NOTE | 2019-08-27 03:06 | NUR ---
Respiratory at bedside with BIPAP machine.
--- NOTE | 2019-08-27 03:10 | NUR ---
PT PLACED ON BIPAP PER ER MD ORDER OR 07/22, VERBAL ORDER, RATE OF 12 AND ON ROOM AIR RATE OF 12. ALARM ON AND AUDIBLE. WILL CONT TO MONITOR.
--- NOTE | 2019-08-27 03:15 | NUR ---
Called [facility] to page Miranda Cline NP.
--- NOTE | 2019-08-27 03:35 | NUR ---
Dr. Combs on panel call with Miranda Cline NP. Patient accepted for admission to [facility], diagnosis: asthma exacerbation.
[2019-08-27] MEDS ORDERED: ACETAMINOPHEN 325 MG TABLET PO PRN (03:45)
[2019-08-27] MEDS ORDERED: MAGNESIUM HYDROXIDE 30 ML LIQUID UDC PO PRN (03:45)
[2019-08-27] MEDS ORDERED: Z GUARD REMEDY PASTE 57 GM TUBE TOP PRN (03:45)
[2019-08-27] MEDS ORDERED: HYDROCODONE/APAP 5-325MG TABLET PO PRN (03:45)
[2019-08-27] MEDS ORDERED: ONDANSETRON 4 MG/2 ML VIAL IV PRN (03:45)
--- NOTE | 2019-08-27 03:48 | NUR ---
Report given to Sadaf BARRIENTOS [facility].
[2019-08-27] MEDS ORDERED: ALBUTEROL SULFATE 2.5 MG/3 ML NEBU NEB SCH (04:00)
[2019-08-27] MEDS ORDERED: IPRATROPIUM BROMIDE 0.5 MG/2.5 ML NEBU NEB SCH (04:00)
--- NOTE | 2019-08-27 04:19 | NUR ---
RT TRANSPORTED PT TO 304. PLACED PT ON 2LPM N/C, SPO2 95%. BIPAP ON STAND BY AT BEDSIDE.
--- NOTE | 2019-08-27 04:30 | NUR ---
Received pt awake, AxO x4. Able to vocalize needs. DX: Asthma exacerbation. On RA, O2 sats up to 91%. No acute distress noted. NSR on monitor. Discussed and reviewed plan of care with pt, pt verbalizes understanding. Steroid therapy noted. Safety precautions in place. Full assessment completed. VSS, afebrile. Pt denies pain, SOB or dizziness at this time. Will continue plan of care.
[2019-08-27 05:13] VITALS: BP 108/61
[2019-08-27] MEDS: methylPREDNISolone SOD SUCC 125 MG/2 ML VIAL IV SCH ×2 (05:46→14:05)
[2019-08-27 06:39] LABS: BASOPHILS % (AUTO) 0.2 % (0.0-2.0); EOSINOPHILS % (AUTO) 0.2 % (0.0-7.0); HEMATOCRIT 40.3 % (31.2-41.9); HEMOGLOBIN 13.4 g/dL (10.9-14.3); LYMPHOCYTES # (AUTO) 0.3 K/uL (20.0-40.0); LYMPHOCYTES % (AUTO) 4.7 % (20.5-51.5); MEAN CORPUSCULAR HEMOGLOBIN 30.3 uug (24.7-32.8); MEAN CORPUSCULAR HGB CONC 33 g/dL (32.3-35.6); MEAN CORPUSCULAR VOLUME 91.1 fL (75.5-95.3); MONOCYTES # (AUTO) 0.1 K/uL (2.0-10.0); MONOCYTES % (AUTO) 1.1 % (0.0-11.0); NEUTROPHILS # (AUTO) 6.2 K/uL (1.8-8.9); NEUTROPHILS % (AUTO) 93.8 % (38.5-71.5); PLATELET COUNT (AUTO) 135 K/uL (179-408); RED BLOOD CELL COUNT(AUTO) 4.42 MIL/uL (3.63-4.92); WHITE BLOOD COUNT (AUTO) 6.6 K/uL (3.8-11.8)
[2019-08-27 07:14] LABS: CREATININE 0.8 mg/dL (0.6-1.3); MAGNESIUM 2.6 mg/dL (1.8-2.4); POTASSIUM 3.1 mmol/L (3.5-5.1)
[2019-08-27] MEDS: IPRATROPIUM BROMIDE 0.5 MG/2.5 ML NEBU NEB SCH ×3 (07:25→14:57)
[2019-08-27] MEDS: ALBUTEROL SULFATE 2.5 MG/3 ML NEBU NEB SCH ×3 (07:25→14:57)
--- NOTE | 2019-08-27 08:00 | NUR ---
Received PT awake alter oriented x3 denies any pain or SOB. PT saturating 96-97% room air. Sinus rhythm on monitor.
[2019-08-27 11:04] VITALS: BP 104/67
--- NOTE | 2019-08-27 13:30 | NUR ---
See by hospitalist with orders to DC with home meds
[2019-08-27] MEDS: POTASSIUM CHLORIDE 20 MEQ TAB.PRT.SR PO SCH ×2 (14:05→15:28)
[2019-08-27 15:05] VITALS: BP 102/60
--- NOTE | 2019-08-27 15:36 | NUR ---
medication discharge instruction given by pharmacist
--- NOTE | 2019-08-27 15:43 | NUR ---
discharged home stable by self via private car
== END 2019-08-27 15:43 | disposition home or self-care (01) | DRG 141 ==
LOC: ER 00:35 → UNDOADMIN 03:53 → DOU3 03:53 → TELE-TD3 03:54
PROVIDERS: ADMIT Nurse Practitioner Acute Care
DX: J45.901 Unspecified asthma with (acute) exacerbation (principal); E03.9 Hypothyroidism, unspecified; E78.5 Hyperlipidemia, unspecified; E66.9 Obesity, unspecified; Z90.710 Acquired absence of both cervix and uterus; Z82.49 Family history of ischemic heart disease and other diseases of the circulatory system; Z90.49 Acquired absence of other specified parts of digestive tract
CPT/HCPCS: 36415; 71045; 83735; 85025; 87400; 93005; 94640; A4663; G0378; J2930; J3475; J3590

== ENCOUNTER 2020-04-13 11:48 | Inpatient (IN) | payer OTHER ==
[~2020-04-13] VITALS: Ht 162.6 cm; Wt 72.6 kg
--- NOTE | 2020-04-13 12:20 | NUR ---
at bedside to examine patient.
[2020-04-13 12:39] LABS: BASOPHILS # (AUTO) 0.1 K/uL (0.0-8.0); BASOPHILS % (AUTO) 1.1 % (0.0-2.0); EOSINOPHILS # (AUTO) 0.9 K/uL (0.0-0.7); EOSINOPHILS % (AUTO) 11.8 % (0.0-7.0); HEMATOCRIT 42.7 % (31.2-41.9); HEMOGLOBIN 14.3 g/dL (10.9-14.3); LYMPHOCYTES # (AUTO) 2.8 K/uL (20.0-40.0); LYMPHOCYTES % (AUTO) 36.2 % (20.5-51.5); MEAN CORPUSCULAR HEMOGLOBIN 30.5 uug (24.7-32.8); MEAN CORPUSCULAR HGB CONC 34 g/dL (32.3-35.6); MONOCYTES # (AUTO) 0.6 K/uL (2.0-10.0); MONOCYTES % (AUTO) 7.4 % (0.0-11.0); NEUTROPHILS # (AUTO) 3.3 K/uL (1.8-8.9); NEUTROPHILS % (AUTO) 43.5 % (38.5-71.5); PLATELET COUNT (AUTO) 209 K/uL (179-408); WHITE BLOOD COUNT (AUTO) 7.6 K/uL (3.8-11.8)
[2020-04-13 12:48] LABS: CREATININE 0.7 mg/dL (0.6-1.3); POTASSIUM 4.6 mmol/L (3.5-5.1)
--- NOTE | 2020-04-13 13:45 | NUR ---
Pt resting with NAD noted. Per pt to be admitted to tele, tele floor called for bed assignment. ER admitting calling pt's HMO for auth.
[2020-04-13 14:16] LABS: BILIRUBIN,DIRECT 0.1 mg/dL (0.0-0.2); BILIRUBIN,TOTAL 0.2 mg/dL (0.2-1.0); TOTAL PROTEIN, SERUM 7.5 g/dL (6.4-8.2)
--- NOTE | 2020-04-13 15:44 | NUR ---
telephone report given to dry charge process attendantrn. Pickens. latest vitals: HR 69, rr 18, 141/95. No c/of pain.
[2020-04-13] MEDS ORDERED: HYDROCODONE/APAP 5-325MG TABLET PO PRN (16:15)
[2020-04-13] MEDS ORDERED: MAGNESIUM HYDROXIDE 30 ML LIQUID UDC PO PRN (16:15)
[2020-04-13] MEDS ORDERED: ONDANSETRON 4 MG/2 ML VIAL IV PRN (16:15)
[2020-04-13] MEDS ORDERED: Z GUARD REMEDY PASTE 57 GM TUBE TOP PRN (16:15)
[2020-04-13] MEDS ORDERED: MORPHINE SULFATE 2 MG/1 ML DISP.SYRIN IV PRN (16:15)
[2020-04-13] MEDS ORDERED: ACETAMINOPHEN 325 MG TABLET PO PRN (16:15)
[2020-04-13] MEDS ORDERED: ZOLPIDEM 5 MG TABLET PO PRN (16:15)
[2020-04-13 16:30] VITALS: BP 109/65
[2020-04-13] MEDS: IV NS 1000 ML 1,000 ML IV PRN (17:59)
--- NOTE | 2020-04-13 18:55 | NUR ---
patient is a 59 years old female patient admitted from ER. Pt. is AAO x 4, able to express all needs. NO acute distress noted. Patient admitted c/o chest pain R/O ACS. Patient denies any pain at this time but stated has pain on the right breast when moving or when pressure is applied. Vital signs stable at this time. Afebrile. IV site on Right upper arm intact and patent, IV NS running at 75ml/hr as ordered and tolerating well. All other needs attended, safety measures in place, call light left at bed side and will continue with care.
--- NOTE | 2020-04-13 19:00 | NUR ---
PATIENT ALERT ORIENTED NO SOB NO CHEST PAIN. PATIENT ON TELE MONITOR SINUS RYTHM SINUS CHANTE. PATIENT HAS NO COMPLAIN OF PAIN, CONT TO MONITOR.
[2020-04-13 20:45] VITALS: BP 116/73
[2020-04-14 00:13] VITALS: BP 101/57
[2020-04-14 05:33] VITALS: BP 132/71
[2020-04-14] MEDS: PANTOPRAZOLE SODIUM 40 MG TABLET.DR PO SCH (06:11)
--- NOTE | 2020-04-14 06:23 | NUR ---
Patient alert oriented, no sob no chest pain, tele monitor sinus rythym at this time. Patient assisted with toileting, no complain of pain, cont to monitor.
[2020-04-14 07:02] LABS: BASOPHILS # (AUTO) 0.1 K/uL (0.0-8.0); EOSINOPHILS # (AUTO) 0.8 K/uL (0.0-0.7); EOSINOPHILS % (AUTO) 11.4 % (0.0-7.0); HEMATOCRIT 39.6 % (31.2-41.9); HEMOGLOBIN 13.4 g/dL (10.9-14.3); LYMPHOCYTES # (AUTO) 2.6 K/uL (20.0-40.0); LYMPHOCYTES % (AUTO) 39.2 % (20.5-51.5); MEAN CORPUSCULAR HEMOGLOBIN 30.7 uug (24.7-32.8); MEAN CORPUSCULAR HGB CONC 34 g/dL (32.3-35.6); MONOCYTES # (AUTO) 0.6 K/uL (2.0-10.0); MONOCYTES % (AUTO) 8.4 % (0.0-11.0); NEUTROPHILS # (AUTO) 2.6 K/uL (1.8-8.9); PLATELET COUNT (AUTO) 183 K/uL (179-408); RED BLOOD CELL COUNT(AUTO) 4.35 MIL/uL (3.63-4.92); WHITE BLOOD COUNT (AUTO) 6.6 K/uL (3.8-11.8)
[2020-04-14 07:15] LABS: BILIRUBIN,TOTAL 0.2 mg/dL (0.2-1.0); CREATININE 0.9 mg/dL (0.6-1.3); PHOSPHOROUS 3.6 mg/dL (2.5-4.9); POTASSIUM 4.2 mmol/L (3.5-5.1); TOTAL PROTEIN, SERUM 6.7 g/dL (6.4-8.2)
[2020-04-14 07:20] LABS: THYROID STIMULATING HORMONE 6.292 mIU/mL (0.358-3.740)
--- NOTE | 2020-04-14 08:00 | NUR ---
Received patient in bed, awake, alert and verbally responsive. No signs of distress noted. No SOB. Afebrile. No complain of pain or Discomfort. No c/o Chest pain. IVF infusing well on Right AC, All needs attended and met. kept clean and comfortable. Will continue to monitor.
[2020-04-14] MEDS: IV NS 1000 ML 1,000 ML IV PRN (08:01)
[2020-04-14] MEDS: ASPIRIN EC 81 MG TABLET.DR PO SCH (08:06)
[2020-04-14 12:11] VITALS: BP 124/74
[2020-04-14] MEDS ORDERED: ATOR10TA PO (14:59)
--- NOTE | 2020-04-14 16:00 | NUR ---
Covid19 PCR done and sent to labs
[2020-04-14 16:13] VITALS: BP 125/71
--- NOTE | 2020-04-14 18:04 | NUR ---
Patient is awake, alert and verbally responsive. No signs of distress noted. No SOB. Afebrile. No complain of pain or discomfort. No chest pain. awaiting for Covid 19 PCR result prior Discharge. All needs attended and met. Kept clean and comfortable. Will endorse to Oncoming Nurse.
--- NOTE | 2020-04-14 19:30 | NUR ---
Received patient calm and lying in bed. No signs of acute distress noted at this time. AAOx3. Patient denies SOB and pain at this time. Denies chest pain. Patient is awaiting COVID-19 lab results. IV patent and intact infusing ordered fluids. Bed locked and low. Safety measures in place and will continue to monitor.
[2020-04-14] MEDS: ATORVASTATIN 10 MG TABLET PO SCH (20:48)
[2020-04-14 21:15] VITALS: BP 154/84
[2020-04-15 00:21] VITALS: BP 156/79
[2020-04-15] MEDS: IV NS 1000 ML 1,000 ML IV PRN ×2 (00:34→15:10)
[2020-04-15 00:50] VITALS: BP 142/85
[2020-04-15 05:26] VITALS: BP 150/92
[2020-04-15] MEDS: PANTOPRAZOLE SODIUM 40 MG TABLET.DR PO SCH (06:20)
[2020-04-15] MEDS: ASPIRIN EC 81 MG TABLET.DR PO SCH (08:30)
[2020-04-15 11:26] VITALS: BP 125/81
[2020-04-15 16:00] VITALS: BP 150/83
--- NOTE | 2020-04-15 19:30 | NUR ---
Received patient in room awaiting a shower. No acute signs of distress noted at this time. Patient denies SOB and chest pain. site monitor on. IV patent and intact running ordered fluids. Safety measures in place and will continue to monitor.
[2020-04-15 20:37] VITALS: BP 135/88
[2020-04-15] MEDS: ATORVASTATIN 10 MG TABLET PO SCH (21:09)
[2020-04-16 01:00] VITALS: BP 142/79
[2020-04-16] MEDS: IV NS 1000 ML 1,000 ML IV PRN (04:48)
[2020-04-16 05:13] VITALS: BP 125/78
[2020-04-16] MEDS: PANTOPRAZOLE SODIUM 40 MG TABLET.DR PO SCH (06:02)
--- NOTE | 2020-04-16 07:30 | NUR ---
Received patient talking on the phone in bed. Patient is alert awake and oriented. There is no signs of respiratory distress noted. Safety precautions in place, bed in the lowest position and locked with call light and belongings within reach. Will continue to monitor
[2020-04-16] MEDS: ASPIRIN EC 81 MG TABLET.DR PO SCH (08:43)
--- NOTE | 2020-04-16 10:00 | NUR ---
Told by Janis to isolate patient in Covid unit as a PUI while pending Covid PCR results. Patient refuse so isolated her in room. Will continue to monitor
[2020-04-16 16:29] VITALS: BP 127/71
--- NOTE | 2020-04-16 18:43 | NUR ---
Patient resting comfortably in bed, no sign of respiratory distress noted at this time. Patient is on Covid 19 isolation precautions. Safety precautions in place, bed is in lowest position and locked with call lights and belongings in place. Will endorse to the oncoming nurse.
--- NOTE | 2020-04-16 19:30 | NUR ---
RECEIVED PT AWAKE, ALERT AND ORIENTEDEX4. PT IN NO ACUTE DISTRESS. IV INTACT. SAFETY AND COMFORT PROVIDED. WILL CONTINUE TO MONITOR.
[2020-04-16 20:00] VITALS: BP_SYST 116; BP_SYST 136; BP_DIAS 77; BP_DIAS 83
[2020-04-16] MEDS: ATORVASTATIN 10 MG TABLET PO SCH (21:48)
[2020-04-17 04:34] VITALS: BP 132/70
--- NOTE | 2020-04-17 06:11 | NUR ---
PT SLEPT COMFORTABLY. PT IN NO ACUTE DISTRESS. PRESCRIBED MEDICATION GIVEN AND PT TOLERATED IT WELL. PT EXPERIENCING PAIN LAST NIGHT BUT PATIENT STATED SHE CAN TOLERATE IT AND DOESN'T WANT ANY PAIN MEDICATION. IV INTACT. SAFETY AND COMFORT PROVIDED. ALL NEEDS ARE MET. WILL ENDORSE TO INCOMING NURSE FOR CONTINUITY OF CARE.
[2020-04-17] MEDS: PANTOPRAZOLE SODIUM 40 MG TABLET.DR PO SCH (06:21)
--- NOTE | 2020-04-17 06:45 | NUR ---
LAB CALLED REGARDING THE RESULT OF COVID IS NEGATIVE FOR PT. CHARGE NURSE AWARE.
[2020-04-17] MEDS: ASPIRIN EC 81 MG TABLET.DR PO SCH (09:15)
--- NOTE | 2020-04-17 09:30 | NUR ---
Patient is awake, alert oriented x 4, not in any form of acute distress, on room air, sitting on bed talking with someone the phone. No complain of any pain at this time. Due medication administered and tolerated well. Assisted with her needs. Call light and frequently used items placed within patient's reach. Will continue to monitor.
[2020-04-17 10:24] VITALS: BP 135/86
--- NOTE | 2020-04-17 11:45 | NUR ---
Laura Jernigan [employer] saw and spoke with the patient, [employer] ordered discharge to home and patient is agreeable with discharge.
[2020-04-17 12:30] VITALS: BP 132/87
--- NOTE | 2020-04-17 13:35 | NUR ---
Discharge instructions provided to the patient with verbalized understanding. Patient remains alert, oriented x 4, not in any form of distress, on room air. She denies any pain or discomfort at this time. All belongings well accounted for and brought with the patient. Discharge papers signed by and provided to the patient. Assisted patient safely to the lobby. Patient discharged to home picked up by daughter Paloma via private car at 1325.
== END 2020-04-17 13:25 | disposition home or self-care (01) | DRG 203 ==
LOC: ER 11:49 → TELE3 15:47 → MEDSURG3 04-16 11:00
PROVIDERS: ADMIT Hospitalist; ATTEND Hospitalist
DX: M94.0 Chondrocostal junction syndrome [Tietze] (principal); J45.909 Unspecified asthma, uncomplicated; E66.9 Obesity, unspecified; E03.9 Hypothyroidism, unspecified; E78.5 Hyperlipidemia, unspecified; Z82.49 Family history of ischemic heart disease and other diseases of the circulatory system; Z68.27 Body mass index [BMI] 27.0-27.9, adult; F41.9 Anxiety disorder, unspecified; Z90.710 Acquired absence of both cervix and uterus
CPT/HCPCS: 36415; 70030-TC; 71045; 83735; 84100; 84443; 85025; 85730; 93005; 93307; A4663; G0378; J7030; U0003-CS

== ENCOUNTER 2022-04-06 17:46 | Emergency (ER) | payer OTHER ==
[~2022-04-06] VITALS: Ht 162.6 cm; Wt 72.6 kg
[~2022-04-06 17:46] MED LIST changes: +ATOR10TA PO
[2022-04-06] MEDS ORDERED: HYDROCODONE/APAP 10-325 MG TABLET ONE (18:40)
[2022-04-06] MEDS ORDERED: ONDANSETRON ODT 4 MG TAB.RAPDIS ONE (18:42)
[2022-04-06] MEDS ORDERED: ONDANSETRON ODT 4 MG TAB.RAPDIS SL ONE (18:45)
[2022-04-06] MEDS ORDERED: HYDROCODONE/APAP 10-325 MG TABLET PO ONE (18:45)
--- NOTE | 2022-04-06 18:58 | NUR ---
report given to Lanie.
[2022-04-06] MEDS ORDERED: HYDR-4209 PO ×2 (19:14→21:26)
[2022-04-06] MEDS ORDERED: ONDA4TAB5 PO ×2 (19:14→21:26)
--- NOTE | 2022-04-06 20:16 | NUR ---
Patient discharged to home in stable condition. Written and verbal after care instructions given. Patient verbalizes understanding of instructions. Stressed follow up or return to ER for worsening s/s. Patient out of ER via wheelchair, Assisted patient on transfer from chair to car, no falls noted, VSS, no acute signs of distress, all belongings taken, provided with copies of xray and CD of images, to be driven home by uber.
== END 2022-04-06 20:16 | disposition home or self-care (01) ==
LOC: ER 17:47
DX: S83.92XA Sprain of unspecified site of left knee, initial encounter (principal); X58.XXXA Exposure to other specified factors, initial encounter; Y93.11 Activity, swimming; Y92.832 Beach as the place of occurrence of the external cause; J45.909 Unspecified asthma, uncomplicated; M25.462 Effusion, left knee
CPT/HCPCS: A4663; Q0162